=== PATIENT | male | born 1980 | race African-American/Black ===

== ENCOUNTER 2021-02-16 08:00 | Outpatient (CLI) | payer OTHER | END 2021-02-16 08:30 | disposition home or self-care (01) | LOC: PPH VACUNA 08:00 | PROVIDERS: ATTEND Emergency Medicine Pediatric Emergency Medicine | DX: Z23 Encounter for immunization (principal) ==

== ENCOUNTER 2024-05-10 01:33 | Emergency (ER) | payer OTHER ==
[~2024-05-10] VITALS: Ht 175.3 cm; Wt 77.1 kg
[~2024-05-10 01:33] MED LIST: DOVATO 50-3001 EACH PO
[2024-05-10] MEDS ORDERED: CLINDAMYCIN PHOSPHATE 150 MG/ML (600mg) IM STA (06:14)
[2024-05-10] MEDS ORDERED: KETOROLAC TROMETHAMINE 60 MG VIAL IM STA (06:14)
[2024-05-10] MEDS ORDERED: ACETAMINOPHEN 500 MG GEL..CAP PO STA (06:15)
[2024-05-10] MEDS ORDERED: CLINDAMYCIN PHOSPHATE 150 MG/ML (300mg) ONE (06:18)
[2024-05-10] MEDS ORDERED: KETOROLAC TROMETHAMINE 60 MG VIAL IM ONE (06:19)
[2024-05-10] MEDS ORDERED: ACETAMINOPHEN 500 MG GEL..CAP PO ONE (06:19)
== END 2024-05-10 06:34 | disposition home or self-care (01) ==
LOC: ER 01:36
DX: K05.219 Aggressive periodontitis, localized, unspecified severity (principal)
CPT/HCPCS: 96372; 99282; J1885; J3490